=== PATIENT | female | born 1965 | race Caucasian/White ===

== ENCOUNTER 2020-05-22 17:58 | Observation (INO) | payer BC ==
[2020-05-22] MEDS ORDERED: Ketorolac 60 MG/2 ML SDV IM ONE (18:37)
--- NOTE | 2020-05-22 19:00 | EDM.PDOC ---
ED HPI GENERAL MEDICAL PROBLEM - General Chief Complaint: Flank Pain Stated Complaint: BRIANA STONE Time Seen by Provider: 05/22/20 18:50 Source of Information: Reports: Patient History Limitations: Reports: Other (no old records) - History of Present Illness INITIAL COMMENTS - FREE TEXT/NARRATIVE: 55 yo female presents with mild R flank pain that began today. Thinks she also h as been running a fever today. Has a pHx of kidney stones x 4 and thought this was another, but admits the pain is only about 3/10 in severity. No nausea. Here for the summer from [place]. Took 2 Tylenol just before arrival. Onset: Today Onset Date: 05/22/20 Duration: Hour(s):, Constant Location: Reports: Back (R flank) Quality: Reports: Ache Severity: Mild Improves with: Reports: None Worsens with: Reports: Other (time) Context: Reports: Other (See HPI) Associated Symptoms: Reports: Fever/Chills (at home). Denies: Diaphoresis, Nausea/Vomiting Treatments NEWSPAPER VENDOR: Reports: Other (see below) (none) Right Flank Pain Score (Numeric/FACES): 2 - Related Data Allergies Allergy/AdvReac Type Severity Reaction Status Date / Time nitrofurantoin Allergy Airway Verified 05/22/20 18:27 [From Macrobid] Tightness Home Meds: Home Meds NK [No Known Home Meds] 05/22/20 [History] Past Medical History Gastrointestinal History: Reports: None Genitourinary History: Reports: Renal Calculus - Past Surgical History Head Surgeries/Procedures: Reports: None GI Surgical History: Reports: Bariatric Procedure Female Surgical History: Reports: None Dermatological Surgical History: Reports: None Social & Family History - Tobacco Use Smoking Status *Q: Current Every Day Smoker Years of Tobacco use: 38 Packs/Tins Daily: 0.5 Used Tobacco, but Quit: No Second Hand Smoke Exposure: No - Caffeine Use Caffeine Use: Reports: None - Recreational Drug Use Recreational Drug Use: No ED ROS GENERAL - Review of Systems Review Of Systems: See Below Constitutional: Reports: Fever, Malaise HEENT: Reports: No Symptoms Respiratory: Reports: No Symptoms Cardiovascular: Reports: No Symptoms GI/Abdominal: Reports: No Symptoms : Reports: Flank Pain (right). Denies: Hematuria Musculoskeletal: Reports: No Symptoms Skin: Reports: No Symptoms Neurological: Reports: No Symptoms Psychiatric: Reports: No Symptoms ED EXAM, RENAL/ - Physical Exam Exam: See Below Exam Limited By: No Limitations General Appearance: Alert, WD/WN, No Apparent Distress Eye Exam: Bilateral Eye: Normal Inspection Ears: Normal External Exam, Normal Canal, Hearing Grossly Normal Nose: Normal Inspection, No Blood Throat/Mouth: Normal Inspection, Normal Lips, Normal Oropharynx, Normal Voice, No Airway Compromise Head: Atraumatic, Normocephalic Neck: Normal Inspection Respiratory/Chest: No Respiratory Distress, No Accessory Muscle Use Cardiovascular: Regular Rate, Rhythm, Tachycardia Back Exam: Normal Inspection. No: CVA Tenderness (R), CVA Tenderness (L) Extremities: Normal Inspection, Normal Range of Motion, Non-Tender, No Pedal Edema Neurological: Alert, Oriented, CN II-XII Intact, Normal Cognition, No Motor/Sensory Deficits Psychiatric: Normal Affect, Normal Mood Skin Exam: Warm, Dry, Intact, Normal Color, No Rash Course - Vital Signs Text/Narrative:: Killian Shipley called @ 2102h Last Recorded V/S: Last Vital Signs Temp 37.0 C 05/22/20 18:28 Pulse 102 H 05/22/20 20:59 Resp 16 05/22/20 18:28 BP 134/86 05/22/20 20:59 Pulse Ox 94 L 05/22/20 18:28 - Orders/Labs/Meds Orders: Active Orders 24 hr Category Date Time Status Chest 2V [CR] Stat Exams 05/22/20 20:11 Taken CULTURE URINE [RM] Stat Lab 05/22/20 20:22 Received Sodium Chloride 0.9% [Normal Saline] 1,000 ml Med 05/22/20 20:15 Active IV ASDIRECTED Medication Orders Sodium Chloride (Normal Saline) 1,000 mls @ 150 mls/hr IV ASDIRECTED LUTHER Last Admin: 05/22/20 20:43 Dose: 150 mls/hr Documented by: TAWANNA Labs: Laboratory Tests 05/22/20 05/22/20 05/22/20 Range/Units 18:18 19:08 19:08 WBC (4.5-11.0) K/uL RBC (3.30-5.50) M/uL Hgb (12.0-15.0) g/dL Hct (36.0-48.0) % MCV (80-98) fL MCH (27-31) pg MCHC (32-36) % Plt Count (150-400) K/uL Sodium 139 L (140-148) mmol/L Potassium 3.8 (3.6-5.2) mmol/L Chloride 102 (100-108) mmol/L Carbon Dioxide 25 (21-32) mmol/L Anion Gap 15.8 H (5.0-14.0) mmol/L BUN 15 (7-18) mg/dL Creatinine 0.9 (0.6-1.0) mg/dL Est Cr Clr Drug Dosing 54.55 mL/min Estimated GFR (MDRD) > 60 (>60) Glucose 106 (74-106) mg/dL Lactic Acid 0.7 (0.4-2.0) mmol/L Calcium 8.6 (8.5-10.1) mg/dL Urine Color Yellow (YELLOW) Urine Appearance Clear (CLEAR) Urine pH 7.5 (5.0-8.0) Ur Specific [place] 1.020 (1.008-1.030) Urine Protein Negative (NEGATIVE) mg/dL Urine Glucose (UA) Negative (NEGATIVE) mg/dL Urine Ketones Negative (NEGATIVE) mg/dL Urine Occult Blood Small H (NEGATIVE) Urine Nitrite Negative (NEGATIVE) Urine Bilirubin Negative (NEGATIVE) Urine Urobilinogen 0.2 (0.2-1.0) EU/dL Ur Leukocyte Esterase Small H (NEGATIVE) Urine RBC Not seen (0-5) Urine WBC 0-5 (0-5) Ur Epithelial Cells Few Amorphous Sediment Rare Urine Bacteria Not seen Urine Mucus Not seen 05/22/20 Range/Units 19:13 WBC 14.2 H (4.5-11.0) K/uL RBC 4.04 (3.30-5.50) M/uL Hgb 10.6 L (12.0-15.0) g/dL Hct 34.5 L (36.0-48.0) % MCV 85 (80-98) fL MCH 26 L (27-31) pg MCHC 31 L (32-36) % Plt Count 284 (150-400) K/uL Sodium (140-148) mmol/L Potassium (3.6-5.2) mmol/L Chloride (100-108) mmol/L Carbon Dioxide (21-32) mmol/L Anion Gap (5.0-14.0) mmol/L BUN (7-18) mg/dL Creatinine (0.6-1.0) mg/dL Est Cr Clr Drug Dosing mL/min Estimated GFR (MDRD) (>60) Glucose (74-106) mg/dL Lactic Acid (0.4-2.0) mmol/L Calcium (8.5-10.1) mg/dL Urine Color (YELLOW) Urine Appearance (CLEAR) Urine pH (5.0-8.0) Ur Specific [place] (1.008-1.030) Urine Protein (NEGATIVE) mg/dL Urine Glucose (UA) (NEGATIVE) mg/dL Urine Ketones (NEGATIVE) mg/dL Urine Occult Blood (NEGATIVE) Urine Nitrite (NEGATIVE) Urine Bilirubin (NEGATIVE) Urine Urobilinogen (0.2-1.0) EU/dL Ur Leukocyte Esterase (NEGATIVE) Urine RBC (0-5) Urine WBC (0-5) Ur Epithelial Cells Amorphous Sediment Urine Bacteria Urine Mucus Meds: Medications Generic Name Dose Route Start Last Admin Trade Name Carrington PRN Reason Stop Dose Admin Sodium Chloride 1,000 mls @ 150 mls/hr 05/22/20 20:15 05/22/20 20:43 Normal Saline IV 150 mls/hr ASDIRECTED LUTHER Administration Discontinued Medications Generic Name Dose Route Start Last Admin Trade Name Carrington PRN Reason Stop Dose Admin Ceftriaxone Sodium 1 gm/ 50 mls @ 100 mls/hr 05/22/20 20:13 05/22/20 20:43 Sodium Chloride IV 05/22/20 20:42 100 mls/hr ONETIME ONE Administration Ketorolac Tromethamine 60 mg 05/22/20 18:37 05/22/20 18:50 Toradol IM 05/22/20 18:38 60 mg ONETIME ONE Administration Tamsulosin HCl 0.4 mg 05/22/20 20:10 05/22/20 20:40 Flomax PO 05/22/20 20:11 0.4 mg ONETIME ONE Administration - Radiology Interpretation Free Text/Narrative:: CT abd/pelvis without contrast-6 mm distal ureteral stone CXR-neg CT Results Date: 05/22/20 Departure - Departure Time of Disposition: 21:06 Disposition: Admitted As Inpatient 68 Condition: Fair Clinical Impression: Kidney stone UTI (urinary tract infection) Qualifiers: Urinary tract infection type: site unspecified Hematuria presence: without hematuria Qualified Code(s): N39.0 - Urinary tract infection, site not specified - Discharge Information *PRESCRIPTION DRUG MONITORING PROGRAM REVIEWED*: Not Applicable *COPY OF PRESCRIPTION DRUG MONITORING REPORT IN PATIENT KAN: Not Applicable Referrals: PCP,None [Primary Care Provider] - Forms: ED Department Discharge Sepsis Event Note (ED) - Evaluation Sepsis Screening Result: No Definite Risk - Focused Exam Vital Signs: Vital Signs Temp Pulse Resp BP Pulse Ox 05/22/20 20:59 102 H 134/86 05/22/20 20:24 89 124/91 H 05/22/20 19:44 88 127/84 05/22/20 19:14 91 149/93 H 05/22/20 18:28 37.0 C 113 H 16 157/98 H 94 L 05/22/20 18:18 37.0 C 113 H 16 157/98 H 94 L - My Orders Last 24 Hours: My Active Orders 05/22/20 20:11 Chest 2V [CR] Stat 05/22/20 20:15 Sodium Chloride 0.9% [Normal Saline] 1,000 ml IV ASDIRECTED 05/22/20 20:22 CULTURE URINE [RM] Stat - Assessment/Plan Last 24 Hours: My Active Orders 05/22/20 20:11 Chest 2V [CR] Stat 05/22/20 20:15 Sodium Chloride 0.9% [Normal Saline] 1,000 ml IV ASDIRECTED 05/22/20 20:22 CULTURE URINE [RM] Stat
--- NOTE | 2020-05-22 20:00 | CRLCT ---
INDICATION: Right-sided flank pain without hematuria or white blood cells TECHNIQUE: CT abdomen and pelvis without contrast. COMPARISON: None FINDINGS: Lower chest: Unremarkable. Liver: Unremarkable. Spleen: Unremarkable. Pancreas: Unremarkable. Gallbladder and bile ducts: Unremarkable. Kidneys: 6 millimeter obstructing calculus distal right ureter with moderate hydronephrosis and perinephric fat stranding. Adrenal glands: Unremarkable. GI tract: Unremarkable. Vascular structures: Unremarkable. Lymph nodes: Unremarkable. Miscellaneous: Unremarkable. No free air or significant free fluid. Pelvic Organs: Unremarkable. Bones: Unremarkable for age. IMPRESSION: 6 millimeter obstructing calculus distal right ureter with moderate hydronephrosis and perinephric fat stranding. Dictated by Brandon Cazares MD @ 05/22/2020 7:57:44 PM Please note that all CT scans at this facility use dose modulation, iterative reconstruction, and/or weight-based dosing when appropriate to reduce radiation dose to as low as reasonably achievable. Dictated by: Brandon Cazares MD @ 05/22/2020 19:57:53 (Electronically Signed)
[2020-05-22] MEDS ORDERED: Tamsulosin 0.4 MG Cap.ER PO ONE (20:10)
[2020-05-22] MEDS ORDERED: cefTRIAXone 1 GM in Sodium Chloride 0.9% 50 ML IV ONE (20:13)
[2020-05-22] MEDS ORDERED: Sodium Chloride 0.9% 1,000 ML IV SCH (20:15)
--- NOTE | 2020-05-22 21:58 | PCM.HP.2 ---
H&P History of Present Illness - General Date of Service: 05/22/20 Admit Problem/Dx: Admission Diagnosis/Problem Admission Diagnosis/Problem Urinary tract infection History Limitations: Reports: No Limitations - History of Present Illness Initial Comments - Free Text/Narative: chief complaint: right flank pain with fever 55 yo female presents with mild R flank pain that began today. Thinks she also has been running a fever today. Has a pHx of kidney stones x 4 and thought this was another, but admits the pain is only about 3/10 in severity. No nausea. Here for the summer from [place]. Took 2 Tylenol just before arrival Onset of Symptoms: Reports: Today Duration of Symptoms: Reports: Hour(s):, Getting Worse Location: Reports: Back (right flank pain) Quality: Reports: Same as Previous Episode, Sharp, Stabbing Severity: Severe Improves with: Reports: Medication Worsens with: Reports: None Context: Reports: Other (prior history of kidney stones) Associated Symptoms: Reports: No Other Symptoms Right Flank Pain Score (Numeric/FACES): 2 - Related Data Allergies/Adverse Reactions: Allergies Allergy/AdvReac Type Severity Reaction Status Date / Time nitrofurantoin Allergy Airway Verified 05/22/20 18:27 [From Macrobid] Tightness Home Medications: Home Meds NK [No Known Home Meds] 05/22/20 [History] Past Medical History Gastrointestinal History: Reports: None Genitourinary History: Reports: Renal Calculus - Past Surgical History Head Surgeries/Procedures: Reports: None GI Surgical History: Reports: Bariatric Procedure Female Surgical History: Reports: None Dermatological Surgical History: Reports: None Social & Family History - Tobacco Use Smoking Status *Q: Current Every Day Smoker Years of Tobacco use: 38 Packs/Tins Daily: 0.5 Used Tobacco, but Quit: No Second Hand Smoke Exposure: No - Caffeine Use Caffeine Use: Reports: None - Recreational Drug Use Recreational Drug Use: No - Living Situation & Occupation Living situation: Reports: , with Spouse Occupation: Retired (lives with in [place], [place], retired [employer], 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 has two adult children.) H&P Review of Systems - Review of Systems: Review Of Systems: See Below General: Reports: Fever, Chills HEENT: Reports: No Symptoms Pulmonary: Reports: No Symptoms Cardiovascular: Reports: No Symptoms Gastrointestinal: Reports: Abdominal Pain (right sided abdominal pain) Genitourinary: Reports: Flank Pain (right) Musculoskeletal: Reports: Back Pain (low back pain) Skin: Reports: No Symptoms Psychiatric: Reports: No Symptoms Neurological: Reports: No Symptoms Hematologic/Lymphatic: Reports: No Symptoms Immunologic: Reports: No Symptoms Exam - Exam Exam: See Below - Vital Signs Vital Signs: Last Vital Signs Temp 37.0 C 05/22/20 18:28 Pulse 102 H 05/22/20 20:59 Resp 16 05/22/20 18:28 BP 134/86 05/22/20 20:59 Pulse Ox 94 L 05/22/20 18:28 Weight: 69.7 kg - Exam General: Alert, Oriented, Cooperative, Other (denies any pain after Toradol) HEENT: PERRLA, Hearing Intact, Mucosa Moist & [place], Nares Patent, Normal Nasal Septum, Posterior Pharynx Clear, Conjunctiva Clear, EOMI, EACs Clear, TMs Clear Neck: Supple, Trachea Midline, 2 Lungs: Clear to Auscultation, Normal Respiratory Effort Cardiovascular: Regular Rate, Regular Rhythm GI/Abdominal Exam: Normal Bowel Sounds, Soft, Non-Tender, No Organomegaly, No Distention, No Abnormal Bruit, No Mass, Pelvis Stable (Female) Exam: Deferred Rectal (Female) Exam: Deferred Back Exam: Normal Inspection, Full Range of Motion, NT Extremities: Normal Inspection, Normal Range of Motion, Non-Tender, No Pedal Edema, Normal Capillary Refill Skin: Warm, Dry, Intact Neurological: Cranial Nerves Intact, Reflexes Equal Bilateral Neuro Extensive - Mental Status: Alert, Oriented x3, Normal Mood/Affect, Normal Cognition Neuro Extensive - Motor, Sensory, Reflexes: CN II-XII Intact, Normal Gait, Normal Reflexes Psychiatric: Alert, Normal Affect, Normal Mood - Patient Data Lab Results Last 24 hrs: Laboratory Results - last 24 hr 05/22/20 05/22/20 05/22/20 Range/Units 18:18 19:08 19:08 WBC (4.5-11.0) K/uL RBC (3.30-5.50) M/uL Hgb (12.0-15.0) g/dL Hct (36.0-48.0) % MCV (80-98) fL MCH (27-31) pg MCHC (32-36) % Plt Count (150-400) K/uL Sodium 139 L (140-148) mmol/L Potassium 3.8 (3.6-5.2) mmol/L Chloride 102 (100-108) mmol/L Carbon Dioxide 25 (21-32) mmol/L Anion Gap 15.8 H (5.0-14.0) mmol/L BUN 15 (7-18) mg/dL Creatinine 0.9 (0.6-1.0) mg/dL Est Cr Clr Drug Dosing 54.55 mL/min Estimated GFR (MDRD) > 60 (>60) Glucose 106 (74-106) mg/dL Lactic Acid 0.7 (0.4-2.0) mmol/L Calcium 8.6 (8.5-10.1) mg/dL Urine Color Yellow (YELLOW) Urine Appearance Clear (CLEAR) Urine pH 7.5 (5.0-8.0) Ur Specific [place] 1.020 (1.008-1.030) Urine Protein Negative (NEGATIVE) mg/dL Urine Glucose (UA) Negative (NEGATIVE) mg/dL Urine Ketones Negative (NEGATIVE) mg/dL Urine Occult Blood Small H (NEGATIVE) Urine Nitrite Negative (NEGATIVE) Urine Bilirubin Negative (NEGATIVE) Urine Urobilinogen 0.2 (0.2-1.0) EU/dL Ur Leukocyte Esterase Small H (NEGATIVE) Urine RBC Not seen (0-5) Urine WBC 0-5 (0-5) Ur Epithelial Cells Few Amorphous Sediment Rare Urine Bacteria Not seen Urine Mucus Not seen 05/22/20 Range/Units 19:13 WBC 14.2 H (4.5-11.0) K/uL RBC 4.04 (3.30-5.50) M/uL Hgb 10.6 L (12.0-15.0) g/dL Hct 34.5 L (36.0-48.0) % MCV 85 (80-98) fL MCH 26 L (27-31) pg MCHC 31 L (32-36) % Plt Count 284 (150-400) K/uL Sodium (140-148) mmol/L Potassium (3.6-5.2) mmol/L Chloride (100-108) mmol/L Carbon Dioxide (21-32) mmol/L Anion Gap (5.0-14.0) mmol/L BUN (7-18) mg/dL Creatinine (0.6-1.0) mg/dL Est Cr Clr Drug Dosing mL/min Estimated GFR (MDRD) (>60) Glucose (74-106) mg/dL Lactic Acid (0.4-2.0) mmol/L Calcium (8.5-10.1) mg/dL Urine Color (YELLOW) Urine Appearance (CLEAR) Urine pH (5.0-8.0) Ur Specific [place] (1.008-1.030) Urine Protein (NEGATIVE) mg/dL Urine Glucose (UA) (NEGATIVE) mg/dL Urine Ketones (NEGATIVE) mg/dL Urine Occult Blood (NEGATIVE) Urine Nitrite (NEGATIVE) Urine Bilirubin (NEGATIVE) Urine Urobilinogen (0.2-1.0) EU/dL Ur Leukocyte Esterase (NEGATIVE) Urine RBC (0-5) Urine WBC (0-5) Ur Epithelial Cells Amorphous Sediment Urine Bacteria Urine Mucus Result Diagrams: 05/22/20 19:13 05/22/20 19:08 Sepsis Event Note - Evaluation Sepsis Screening Result: No Definite Risk - Focused Exam Vital Signs: Vital Signs Temp Pulse Resp BP Pulse Ox 05/22/20 20:59 102 H 134/86 05/22/20 20:24 89 124/91 H 05/22/20 19:44 88 127/84 05/22/20 19:14 91 149/93 H 05/22/20 18:28 37.0 C 113 H 16 157/98 H 94 L 05/22/20 18:18 37.0 C 113 H 16 157/98 H 94 L Date Exam was Performed: 05/22/20 Time Exam was Performed: 21:59 - Problem List (1) UTI (urinary tract infection) SNOMED Code(s): 97593643 ICD Code: N39.0 - URINARY TRACT INFECTION, SITE NOT SPECIFIED Status: Acute Priority: High Current Visit: Yes Qualifiers: Urinary tract infection type: site unspecified Hematuria presence: without hematuria Qualified Code(s): N39.0 - Urinary tract infection, site not specified (2) Kidney stone SNOMED Code(s): 87144924 ICD Code: N20.0 - CALCULUS OF KIDNEY Status: Acute Priority: High Current Visit: Yes Problem List Initiated/Reviewed/Updated: Yes Orders Last 24hrs: Active Orders 24 hr Category Date Time Status Patient Status Manage Transfer [TRANSFER] Routine ADT 05/22/20 21:46 Ordered Chest 2V [CR] Stat Exams 05/22/20 20:11 Taken CULTURE URINE [RM] Stat Lab 05/22/20 20:22 Received Sodium Chloride 0.9% [Normal Saline] 1,000 ml Med 05/22/20 20:15 Active IV ASDIRECTED Resuscitation Status Routine Resus Stat 05/22/20 21:47 Ordered Medication Orders Sodium Chloride (Normal Saline) 1,000 mls @ 150 mls/hr IV ASDIRECTED LUTHER Last Admin: 05/22/20 20:43 Dose: 150 mls/hr Documented by: TAWANNA Assessment/Plan Comment:: ASSESSMENT AND PLAN: Urinary Tract Infection with Kidney Stone 55 yo female presents with mild R flank pain that began today. Thinks she also has been running a fever today. Has a pHx of kidney stones x 4 and thought this was another, but admits the pain is only about 3/10 in severity. No nausea. Here for the summer [place]. Took 2 Tylenol just before arrival ER course: CBC WBC+14.5 , ua with micro Imaging: CT abd/pelvis without contrast-6 mm distal ureteral stone, chest xray negative RIGHT URETERAL CALCULUS-persistent pain, improved from admission with Toradol -Flomax 0.4 mg p.o. bid -IV fluids for hydration -Pain and nausea medication as needed -Strain all urine -Monitor urine output and renal function -am labs CBC & BMP URINARY TRACT INFECTION- -Urine culture pending -Ceftriaxone 1 g IV every 24 hours pending culture result MAINTENANCE ISSUES -DVT prophylaxis; ambulate -GI prophylaxis; Protonix 40 mg IV daily -Dey catheter; not indicated -Nutrition; regular diet -Nicotine dependence; Nicorette gum as needed CODE STATUS-FULL CODE ADMISSION STATUS-this patient will be admitted to observation status, expect no more than a one night hospital stay for evaluation and management of problems as outlined above. DISPOSITION-anticipate discharge to home after the hospital stay. PRIMARY CARE PROVIDER-None in this area, [place] HOSPITALIST- Dr. Mason - Mortality Measure Prognosis:: Good
[2020-05-22] MEDS ORDERED: Nicotine Polacrilex 2 MG Gum CHEW PRN (22:19)
[2020-05-22] MEDS ORDERED: Docusate Sodium 100 MG Cap PO PRN (22:19)
[2020-05-22] MEDS ORDERED: Ondansetron 4 MG Tab.DIS PO PRN (22:19)
[2020-05-22] MEDS ORDERED: Ondansetron 4 MG/2 ML SDV IV PRN (22:19)
[2020-05-22] MEDS ORDERED: Albuterol 0.083% 2.5 MG/3 ML Neb Soln NEB PRN (22:19)
[2020-05-22] MEDS ORDERED: LORazepam 2 MG/ML SDV IV PRN (22:19)
[2020-05-22] MEDS: oxyCODONE 5 MG Tab PO PRN (23:33)
[2020-05-22] MEDS ORDERED: Zolpidem 5 MG Tab PO ONE (23:33)
[2020-05-23] MEDS ORDERED: HYDROmorphone 1 MG/ML Syringe IVPUSH ONE (01:45)
[2020-05-23] MEDS: Acetaminophen 325 MG Tab PO PRN ×5 (02:01→21:25)
[2020-05-23] MEDS: Sodium Chloride 0.9% 1,000 ML IV SCH ×2 (02:05→04:43)
[2020-05-23] MEDS: oxyCODONE 5 MG Tab PO PRN ×5 (04:14→21:25)
[2020-05-23] MEDS: Tamsulosin 0.4 MG Cap.ER PO SCH ×2 (07:46→17:43)
[2020-05-23] MEDS ORDERED: Potassium Chloride 20 MEQ Tab.ER PO ONE ×2 (09:00→17:00)
--- NOTE | 2020-05-23 10:20 | PCM.PN ---
- General Info Date of Service: 05/23/20 Subjective Update: Ms. Isaacs has been stable since admission. She did have mild temperature elevation and continues to experience flank pain. Pain seems to be even lower, making it more likely that stone is moving and hopefully will be passed in the next 24 hours. Functional Status: Reports: Pain Controlled, Tolerating Diet, Ambulating, Urinating - Review of Systems General: Reports: Fever, Weakness, Chills Pulmonary: Reports: No Symptoms Cardiovascular: Reports: No Symptoms Gastrointestinal: Reports: Abdominal Pain Genitourinary: Reports: Flank Pain - Patient Data Vitals - Most Recent: Last Vital Signs Temp 98.5 F 05/23/20 07:46 Pulse 107 H 05/23/20 07:46 Resp 16 05/23/20 07:46 BP 118/83 05/23/20 07:46 Pulse Ox 98 05/23/20 07:46 Weight - Most Recent: 153 lb 10.595 oz I&O - Last 24 Hours: Intake & Output 05/22/20 05/23/20 05/23/20 22:59 06:59 14:59 Intake Total 240 750 240 Output Total 400 400 Balance 240 350 -160 Lab Results Last 24 Hours: Laboratory Results - last 24 hr 05/22/20 05/22/20 05/22/20 Range/Units 18:18 19:08 19:08 WBC (4.5-11.0) K/uL RBC (3.30-5.50) M/uL Hgb (12.0-15.0) g/dL Hct (36.0-48.0) % MCV (80-98) fL MCH (27-31) pg MCHC (32-36) % Plt Count (150-400) K/uL Neut % (Auto) (36-66) % Lymph % (Auto) (24-44) % [place] % (Auto) (2-6) % Eos % (Auto) (2-4) % Baso % (Auto) (0-1) % Sodium 139 L (140-148) mmol/L Potassium 3.8 (3.6-5.2) mmol/L Chloride 102 (100-108) mmol/L Carbon Dioxide 25 (21-32) mmol/L Anion Gap 15.8 H (5.0-14.0) mmol/L BUN 15 (7-18) mg/dL Creatinine 0.9 (0.6-1.0) mg/dL Est Cr Clr Drug Dosing 54.55 mL/min Estimated GFR (MDRD) > 60 (>60) Glucose 106 (74-106) mg/dL Lactic Acid 0.7 (0.4-2.0) mmol/L Calcium 8.6 (8.5-10.1) mg/dL Urine Color Yellow (YELLOW) Urine Appearance Clear (CLEAR) Urine pH 7.5 (5.0-8.0) Ur Specific [place] 1.020 (1.008-1.030) Urine Protein Negative (NEGATIVE) mg/dL Urine Glucose (UA) Negative (NEGATIVE) mg/dL Urine Ketones Negative (NEGATIVE) mg/dL Urine Occult Blood Small H (NEGATIVE) Urine Nitrite Negative (NEGATIVE) Urine Bilirubin Negative (NEGATIVE) Urine Urobilinogen 0.2 (0.2-1.0) EU/dL Ur Leukocyte Esterase Small H (NEGATIVE) Urine RBC Not seen (0-5) Urine WBC 0-5 (0-5) Ur Epithelial Cells Few Amorphous Sediment Rare Urine Bacteria Not seen Urine Mucus Not seen 05/22/20 05/23/20 05/23/20 Range/Units 19:13 04:20 04:20 WBC 14.2 H 15.1 H (4.5-11.0) K/uL RBC 4.04 3.63 (3.30-5.50) M/uL Hgb 10.6 L 9.7 L (12.0-15.0) g/dL Hct 34.5 L 31.2 L (36.0-48.0) % MCV 85 86 (80-98) fL MCH 26 L 27 (27-31) pg MCHC 31 L 31 L (32-36) % Plt Count 284 246 (150-400) K/uL Neut % (Auto) 84 H (36-66) % Lymph % (Auto) 8 L (24-44) % [place] % (Auto) 9 H (2-6) % Eos % (Auto) 0 L (2-4) % Baso % (Auto) 0 (0-1) % Sodium 138 L (140-148) mmol/L Potassium 3.5 L (3.6-5.2) mmol/L Chloride 104 (100-108) mmol/L Carbon Dioxide 26 (21-32) mmol/L Anion Gap 11.5 (5.0-14.0) mmol/L BUN 14 (7-18) mg/dL Creatinine 0.9 (0.6-1.0) mg/dL Est Cr Clr Drug Dosing 54.55 mL/min Estimated GFR (MDRD) > 60 (>60) Glucose 104 (74-106) mg/dL Lactic Acid (0.4-2.0) mmol/L Calcium 7.7 L (8.5-10.1) mg/dL Urine Color (YELLOW) Urine Appearance (CLEAR) Urine pH (5.0-8.0) Ur Specific [place] (1.008-1.030) Urine Protein (NEGATIVE) mg/dL Urine Glucose (UA) (NEGATIVE) mg/dL Urine Ketones (NEGATIVE) mg/dL Urine Occult Blood (NEGATIVE) Urine Nitrite (NEGATIVE) Urine Bilirubin (NEGATIVE) Urine Urobilinogen (0.2-1.0) EU/dL Ur Leukocyte Esterase (NEGATIVE) Urine RBC (0-5) Urine WBC (0-5) Ur Epithelial Cells Amorphous Sediment Urine Bacteria Urine Mucus Med Orders - Current: Current Medications Acetaminophen (Tylenol) 650 mg PO Q4H PRN PRN Reason: Fever Last Admin: 05/23/20 08:15 Dose: 650 mg Documented by: Albuterol (Proventil Neb Soln) 2.5 mg NEB Q4H PRN PRN Reason: Shortness Of Breath/wheezing Docusate Sodium (Colace) 100 mg PO BID PRN PRN Reason: Constipation Ceftriaxone Sodium 1 gm/ (Sodium Chloride) 50 mls @ 100 mls/hr IV Q24H [facility] Lorazepam (Ativan) 1 mg IV Q6H PRN PRN Reason: Nausea/Vomiting Morphine Sulfate (Morphine) 2 mg IVPUSH Q2H PRN PRN Reason: Pain (severe 7-10) Nicotine Polacrilex (Nicorelief) 4 mg CHEW Q1H PRN PRN Reason: Agitation Ondansetron HCl (Zofran Odt) 4 mg PO Q6H PRN PRN Reason: Nausea able to take PO Ondansetron HCl (Zofran) 4 mg IV Q4H PRN PRN Reason: Nausea/Vomiting Oxycodone HCl (Oxycodone) 10 mg PO Q4H PRN PRN Reason: Pain (moderate 4-6) Last Admin: 05/23/20 08:16 Dose: 10 mg Documented by: Tamsulosin HCl (Flomax) 0.4 mg PO BIDPC [facility] Last Admin: 05/23/20 07:46 Dose: 0.4 mg Documented by: Zolpidem Tartrate (Ambien) 5 mg PO BEDTIME [facility] Discontinued Medications Hydromorphone HCl (Dilaudid) 1 mg IVPUSH ONETIME ONE Stop: 05/23/20 01:46 Last Admin: 05/23/20 02:01 Dose: 1 mg Documented by: Sodium Chloride (Normal Saline) 1,000 mls @ 150 mls/hr IV ASDIRECTED [facility] Last Admin: 05/22/20 20:43 Dose: 150 mls/hr Documented by: Ceftriaxone Sodium 1 gm/ (Sodium Chloride) 50 mls @ 100 mls/hr IV ONETIME ONE Stop: 05/22/20 20:42 Last Admin: 05/22/20 20:43 Dose: 100 mls/hr Documented by: Sodium Chloride (Normal Saline) 1,000 mls @ 125 mls/hr IV ASDIRECTED [facility] Last Admin: 05/23/20 04:43 Dose: 125 mls/hr Documented by: Ketorolac Tromethamine (Toradol) 60 mg IM ONETIME ONE Stop: 05/22/20 18:38 Last Admin: 05/22/20 18:50 Dose: 60 mg Documented by: Potassium Chloride (Klor-Con M20) 40 meq PO ONETIME ONE Stop: 05/23/20 09:01 Last Admin: 05/23/20 09:48 Dose: 40 meq Documented by: Tamsulosin HCl (Flomax) 0.4 mg PO ONETIME ONE Stop: 05/22/20 20:11 Last Admin: 05/22/20 20:40 Dose: 0.4 mg Documented by: Zolpidem Tartrate (Ambien) 5 mg PO ONETIME ONE Stop: 05/22/20 23:34 Last Admin: 05/22/20 23:52 Dose: 5 mg Documented by: - Exam Quality Assessment: DVT Prophylaxis General: Alert, Oriented, Cooperative, Mild Distress Lungs: Clear to Auscultation, Normal Respiratory Effort Cardiovascular: Regular Rate, Regular Rhythm, No Murmurs GI/Abdominal Exam: Soft, No Organomegaly, Tender. No: Distended, Guarding, Rigid, Rebound Back Exam: CVA Tenderness (R) Sepsis Event Note - Evaluation Sepsis Screening Result: Sepsis Risk - Focused Exam Vital Signs: Vital Signs Temp Temp Pulse Resp BP Pulse Ox 05/23/20 07:46 98.5 F 107 H 16 118/83 98 05/23/20 02:31 99.7 F 05/23/20 02:01 100.9 F H 05/23/20 01:50 100.9 F H 05/22/20 22:24 98.1 F 89 18 143/70 H 98 Date Exam was Performed: 05/23/20 Time Exam was Performed: 10:16 - Problem List Review Problem List Initiated/Reviewed/Updated: Yes - My Orders Last 24 Hours: My Active Orders 05/23/20 10:12 Convert IV to Saline Lock [OM.PC] Routine 05/23/20 17:00 Potassium Chloride [Klor-Con M20] 40 meq PO ONETIME ONE 05/24/20 05:00 BASIC METABOLIC PANEL,BMP [CHEM] Timed CBC WITH AUTO DIFF [HEME] Timed - Plan Plan:: ASSESSMENT AND PLAN RIGHT URETERAL CALCULUS-persistent pain, improved from admission -Flomax 0.4 mg p.o. bid -Saline lock IV -Pain and nausea medication as needed -Strain all urine -Monitor urine output and renal function -am labs CBC & BMP URINARY TRACT INFECTION- -Urine culture pending -Ceftriaxone 1 g IV every 24 hours pending culture result MAINTENANCE ISSUES -DVT prophylaxis; ambulate -GI prophylaxis; Protonix 40 mg IV daily -Dey catheter; not indicated -Nutrition; regular diet -Nicotine dependence; Nicorette gum as needed CODE STATUS-FULL CODE ADMISSION STATUS-this patient will be admitted to observation status, expect no more than a one night hospital stay for evaluation and management of problems as outlined above. DISPOSITION-anticipate discharge to home after the hospital stay. PRIMARY CARE PROVIDER-None in this area, [place] HOSPITALIST- Dr. Mason
[2020-05-23] MEDS: Morphine 2 MG/ML SYRINGE IVPUSH PRN ×2 (13:52→19:49)
[2020-05-23] MEDS ORDERED: Zolpidem 5 MG Tab PO SCH (21:00)
[2020-05-23] MEDS ORDERED: Zolpidem 5 MG Tab PO PRN (21:00)
[2020-05-23] MEDS ORDERED: cefTRIAXone 1 GM in Sodium Chloride 0.9% 50 ML IV SCH (21:10)
[2020-05-24] MEDS: oxyCODONE 5 MG Tab PO PRN ×2 (04:05→08:20)
[2020-05-24] MEDS: Tamsulosin 0.4 MG Cap.ER PO SCH (08:20)
--- NOTE | 2020-05-24 11:04 | PCM.DCSUM1 ---
Discharge Summary - Hospital Course Brief History: Ms. Isaacs is a 55-year-old woman who was admitted through the emergency department with flank pain and fever secondary to a distal ureteral stone and associated urinary tract infection. - Discharge Data Discharge Date: 05/24/20 Discharge Disposition: Home, Self-Care 01 Condition: Fair - Referral to Home Health Primary Care Physician: PCP None - Discharge Diagnosis/Problem(s) (1) Anemia SNOMED Code(s): 472760960 ICD Code: D64.9 - ANEMIA, UNSPECIFIED Status: Acute Current Visit: Yes (2) Kidney stone SNOMED Code(s): 73877877 ICD Code: N20.0 - CALCULUS OF KIDNEY Status: Acute Priority: High Current Visit: Yes (3) UTI (urinary tract infection) SNOMED Code(s): 67567394 ICD Code: N39.0 - URINARY TRACT INFECTION, SITE NOT SPECIFIED Status: Acute Priority: High Current Visit: Yes Qualifiers: Urinary tract infection type: site unspecified Hematuria presence: without hematuria Qualified Code(s): N39.0 - Urinary tract infection, site not specified - Patient Summary/Data Hospital Course: Ms. Isaacs is a 55-year-old woman who was admitted through the emergency department with fever and right flank pain secondary to a distal ureteral calculus on the right with associated infection. She had reported fever at home and white blood cell count was noted to be elevated in the emergency department. Urinalysis looked fairly clear. CT scan did show evidence of a distal right ureteral stone as well as some stranding consistent with underlying infection. Urine culture was obtained and remained negative throughout her hospital stay. On admission she was given IV fluids for hydration and started on IV antibiotic therapy with ceftriaxone. Over the next 2 days of hospital stay she was relatively low but had not yet passed the stone white blood cell count improved but had not normalized. She had no obvious fevers or other significant evidence of sepsis. On admission she was noted to be mildly anemic hemoglobin did drop to 9.1 during hospital stay and will need to be followed up and further evaluated. She will be discharged home on oral antibiotic therapy with Omnicef for an additional 5 days. If she has recurrent fevers or increase in pain she should return to the emergency department. Activity will be as tolerated and she will resume her usual diet. Follow-up appointment should be scheduled with a local primary care provider and a hemoglobin should be obtained at the time of follow-up appointment. - Patient Instructions Diet: Usual Diet as Tolerated Activity: As Tolerated Other/Special Instructions: Please schedule follow-up appointment with primary care provider within 1 week, hemoglobin level should be obtained at the time of follow-up appointment. - Discharge Plan *PRESCRIPTION DRUG MONITORING PROGRAM REVIEWED*: Not Applicable *COPY OF PRESCRIPTION DRUG MONITORING REPORT IN PATIENT KAN: Not Applicable Prescriptions/Med Rec: Tamsulosin [Flomax] 0.4 mg PO BIDPC #20 cap.er Cefdinir [Omnicef] 300 mg PO BID #10 cap oxyCODONE 5 mg PO Q4H PRN #20 tablet PRN Reason: Pain (Moderate 4-6) Home Medications: Home Meds Cefdinir [Omnicef] 300 mg PO BID #10 cap 05/24/20 [Rx] Tamsulosin [Flomax] 0.4 mg PO BIDPC #20 cap.er 05/24/20 [Rx] oxyCODONE 5 mg PO Q4H PRN #20 tablet 05/24/20 [Rx] Referrals: PCP,None [Primary Care Provider] - - Discharge Summary/Plan Comment DC Time >30 min.: No - Patient Data Vitals - Most Recent: Last Vital Signs Temp 98.5 F 05/24/20 08:21 Pulse 103 H 05/24/20 08:21 Resp 16 05/24/20 08:21 BP 124/74 05/24/20 08:21 Pulse Ox 96 05/24/20 08:21 Weight - Most Recent: 153 lb 10.595 oz I&O - Last 24 hours: Intake & Output 05/23/20 05/24/20 05/24/20 22:59 06:59 14:59 Intake Total 1550 200 Output Total 450 1000 Balance 1100 -1000 200 Lab Results - Last 24 hrs: Laboratory Results - last 24 hr 05/24/20 05/24/20 Range/Units 05:53 05:53 WBC 12.8 H (4.5-11.0) K/uL RBC 3.45 (3.30-5.50) M/uL Hgb 9.1 L (12.0-15.0) g/dL Hct 30.0 L (36.0-48.0) % MCV 87 (80-98) fL MCH 26 L (27-31) pg MCHC 30 L (32-36) % Plt Count 222 (150-400) K/uL Neut % (Auto) 79 H (36-66) % Lymph % (Auto) 12 L (24-44) % [place] % (Auto) 8 H (2-6) % Eos % (Auto) 1 L (2-4) % Baso % (Auto) 0 (0-1) % Sodium 135 L (140-148) mmol/L Potassium 4.2 (3.6-5.2) mmol/L Chloride 104 (100-108) mmol/L Carbon Dioxide 25 (21-32) mmol/L Anion Gap 10.2 (5.0-14.0) mmol/L BUN 10 (7-18) mg/dL Creatinine 0.9 (0.6-1.0) mg/dL Est Cr Clr Drug Dosing 54.55 mL/min Estimated GFR (MDRD) > 60 (>60) Glucose 104 (74-106) mg/dL Calcium 7.9 L (8.5-10.1) mg/dL [facility] Results - Last 24 hrs: Microbiology 05/22/20 20:22 Urine Culture - Preliminary Urine, Clean Catch MIXED BING DAY 1 Med Orders - Current: Current Medications Acetaminophen (Tylenol) 650 mg PO Q4H PRN PRN Reason: Fever Last Admin: 05/23/20 21:25 Dose: 650 mg Documented by: Albuterol (Proventil Neb Soln) 2.5 mg NEB Q4H PRN PRN Reason: Shortness Of Breath/wheezing Docusate Sodium (Colace) 100 mg PO BID PRN PRN Reason: Constipation Last Admin: 05/24/20 08:29 Dose: 100 mg Documented by: Ceftriaxone Sodium 1 gm/ (Sodium Chloride) 50 mls @ 100 mls/hr IV Q24H [facility] Last Admin: 05/23/20 21:27 Dose: 100 mls/hr Documented by: Lorazepam (Ativan) 1 mg IV Q6H PRN PRN Reason: Nausea/Vomiting Morphine Sulfate (Morphine) 2 mg IVPUSH Q2H PRN PRN Reason: Pain (severe 7-10) Last Admin: 05/23/20 19:49 Dose: 2 mg Documented by: Nicotine Polacrilex (Nicorelief) 4 mg CHEW Q1H PRN PRN Reason: Agitation Ondansetron HCl (Zofran Odt) 4 mg PO Q6H PRN PRN Reason: Nausea able to take PO Last Admin: 05/24/20 10:36 Dose: 4 mg Documented by: Ondansetron HCl (Zofran) 4 mg IV Q4H PRN PRN Reason: Nausea/Vomiting Oxycodone HCl (Oxycodone) 10 mg PO Q4H PRN PRN Reason: Pain (moderate 4-6) Last Admin: 05/24/20 08:20 Dose: 10 mg Documented by: [facility] Last Admin: 05/24/20 08:20 Dose: 0.4 mg Documented by: Zolpidem Tartrate (Ambien) 10 mg PO BEDTIME PRN PRN Reason: Insomnia Last Admin: 05/23/20 21:25 Dose: 10 mg Documented by: Discontinued Medications Hydromorphone HCl (Dilaudid) 1 mg IVPUSH ONETIME ONE Stop: 05/23/20 01:46 Last Admin: 05/23/20 02:01 Dose: 1 mg Documented by: Sodium Chloride (Normal Saline) 1,000 mls @ [facility] Last Admin: 05/22/20 20:43 Dose: 150 mls/hr Documented by: Ceftriaxone Sodium 1 gm/ (Sodium Chloride) 50 mls @ 100 mls/hr IV ONETIME ONE Stop: 05/22/20 20:42 Last Admin: 05/22/20 20:43 Dose: 100 mls/hr Documented by: Sodium Chloride (Normal Saline) 1,000 mls @ 125 [facility] Last Admin: 05/23/20 04:43 Dose: 125 mls/hr Documented by: Ketorolac Tromethamine (Toradol) 60 mg IM ONETIME ONE Stop: 05/22/20 18:38 Last Admin: 05/22/20 18:50 Dose: 60 mg Documented by: Potassium Chloride (Klor-Con M20) 40 meq PO ONETIME ONE Stop: 05/23/20 09:01 Last Admin: 05/23/20 09:48 Dose: 40 meq Documented by: Potassium Chloride (Klor-Con M20) 40 meq PO ONETIME ONE Stop: 05/23/20 17:01 Last Admin: 05/23/20 17:43 Dose: 40 meq Documented by: Tamsulosin HCl (Flomax) 0.4 mg PO ONETIME ONE Stop: 05/22/20 20:11 Last Admin: 05/22/20 20:40 Dose: 0.4 mg Documented by: Zolpidem Tartrate (Ambien) 5 mg PO BEDTIME [facility] Zolpidem Tartrate (Ambien) 5 mg PO ONETIME ONE Stop: 05/22/20 23:34 Last Admin: 05/22/20 23:52 Dose: 5 mg Documented by: - Exam General: Reports: Alert, Oriented, Cooperative, Mild Distress Lungs: Reports: Clear to Auscultation, Normal Respiratory Effort Cardiovascular: Reports: Regular Rate, Regular Rhythm, No Murmurs GI/Abdominal Exam: Soft, No Organomegaly, Tender. No: Distended, Guarding, Rigid, Rebound Back Exam: Reports: CVA Tenderness (R)
--- NOTE | 2020-05-25 10:22 | CR ---
CHEST: 2 view CLINICAL HISTORY:Leukocytosis COMPARISON:None FINDINGS: The heart size, pulmonary vascularity and hilar structures are normal. No infiltrate effusion or pneumothorax is seen. IMPRESSION: No acute cardiopulmonary process.
== END 2020-05-24 11:25 | disposition home or self-care (01) ==
LOC: JP.ED 17:58 → JP.MS 21:46
PROVIDERS: ADMIT Hospitalist; ATTEND Hospitalist
DX: N13.6 Pyonephrosis (principal); F17.210 Nicotine dependence, cigarettes, uncomplicated; D64.9 Anemia, unspecified; Z79.891 Long term (current) use of opiate analgesic; Z79.899 Other long term (current) drug therapy; Z88.1 Allergy status to other antibiotic agents; Z87.442 Personal history of urinary calculi
CPT/HCPCS: 36415; 71046; 74176; 80048; 81001; 83605; 85025; 85027; 87086; 96361; 96365; 96372; 96375; 96376; 99285; A9270; G0378; J0696; J1170; J1885; J2270; J7030; J7050; 99217; 99218; 99224; 99283